=== PATIENT | female | born 1975 | race Caucasian/White ===

== ENCOUNTER 2020-07-08 08:56 | Observation (INO) | payer OTHER ==
[2020-07-05 08:59] LABS: BASOPHILS % (AUTO) 0.7 % (0.0-5.0); EOSINOPHILS % (AUTO) 2.3 % (0.0-8.0); HEMATOCRIT 47.5 % (36-48); LYMPHOCYTES % (AUTO) 37.8 % (21.0-51.0); MEAN CORPUSCULAR HEMOGLOBIN 29.1 pg (27.0-33.0); MEAN CORPUSCULAR HGB CONC 32.2 g/dL (32.0-36.0); MEAN CORPUSCULAR VOLUME 90.5 fL (79-99); MONOCYTES % (AUTO) 6.3 % (3.0-13.0); NEUTROPHILS % (AUTO) 52.2 % (40.0-77.0); PLATELET COUNT (AUTO) 257 K/uL (130-400); RED BLOOD CELL COUNT(AUTO) 5.25 MIL/uL (4.00-5.50); WHITE BLOOD COUNT (AUTO) 6.8 K/uL (4.8-10.8)
[2020-07-05 09:15] LABS: CREATININE 0.8 mg/dL (0.5-1.5); POTASSIUM 4.2 mmol/L (3.5-5.1)
[2020-07-05 09:35] LABS: INR 0.92 (0.85-1.15)
[2020-07-08] VITALS (25 sets, daily range): BP systolic 112–157; BP diastolic 62–94
[~2020-07-08] VITALS: Ht 180.3 cm; Wt 161.0 kg
[~2020-07-08 08:56] MED LIST: ZONI100C19 PO
[2020-07-08] MEDS ORDERED: LACTATED RINGERS 1000ML 1,000 ML IV ONE (09:18)
[2020-07-08] MEDS: CEFAZOLIN SODIUM 1 GM VIAL ONE ×2 (09:57→13:17)
[2020-07-08] MEDS ORDERED: LIDOCAINE PF 2% 5ML ABBOJECT ONE (12:38)
[2020-07-08] MEDS ORDERED: PROPOFOL 10 MG/ML 20ML VIAL IV ONE ×3 (12:39→13:35)
[2020-07-08] MEDS ORDERED: ROCURONIUM 10MG/1ML SYR 10 MG/ML ML ONE (12:39)
[2020-07-08] MEDS ORDERED: FENTANYL CITRATE PF 50 MCG/1 ML 5ML AMP IV ONE ×2 (12:39→13:41)
[2020-07-08] MEDS ORDERED: ONDANSETRON HCL 4 MG/2 ML VIAL ONE ×2 (12:39→14:52)
[2020-07-08] MEDS ORDERED: MIDAZOLAM HCL 1 MG/ML 2ML VIAL ONE (12:40)
[2020-07-08] MEDS ORDERED: PHENYLEPHRINE HCL 10 MG/ML 1ML VIAL IV ONE (13:52)
[2020-07-08] MEDS ORDERED: NEOSTIGMINE 5MG/5ML SYR IV ONE (14:11)
[2020-07-08] MEDS ORDERED: GLYCOPYRROLATE 1 MG/5 ML SYRINGE ONE (14:11)
[2020-07-08] MEDS ORDERED: BUPIVACAINE/PF 0.5% 30ML VIAL ONE (14:20)
[2020-07-08] MEDS: MORPHINE SULFATE 4 MG/1ML SYG IVP PRN (18:44)
[2020-07-08] MEDS: LACTATED RINGERS 1000ML 1,000 ML IV SCH (19:56)
[2020-07-08] MEDS: CEFAZOLIN SODIUM 1 GM VIAL IVP SCH (19:56)
--- NOTE | 2020-07-08 20:00 | NUR ---
ASSESSMENT AND TEACHING PATIENT AWAKE, ALERT, OX3, NO SOB, NO C/O PAIN AT THIS TIME, DRESSING ABDOMEN D/I, ABDOMINAL BINDER INTACT, ENCOURAGE DEEP BREATHING AND REINFORCE IS PREVIOUSLY DONE, WITH MAXIMUM VOLUME INSPIRATION OF 1500, teach patient plan of care, pain management and expected outcome patient verbalizes understanding via teach back
[2020-07-08] MEDS: KETOROLAC TROMETHAMINE 30MG/ML IV PRN (20:39)
[2020-07-09] MEDS: MORPHINE SULFATE 4 MG/1ML SYG IVP PRN (02:01)
[2020-07-09] MEDS: CEFAZOLIN SODIUM 1 GM VIAL IVP SCH (02:01)
[2020-07-09] MEDS: LACTATED RINGERS 1000ML 1,000 ML IV SCH ×2 (02:02→10:00)
[2020-07-09] MEDS: ONDANSETRON HCL 4 MG/2 ML VIAL IVP PRN ×3 (02:07→14:43)
[2020-07-09 04:13] VITALS: BP 133/76
[2020-07-09 05:30] LABS: BASOPHILS % (AUTO) 0.2 % (0.0-5.0); EOSINOPHILS % (AUTO) 0.6 % (0.0-8.0); HEMATOCRIT 42.6 % (36-48); MEAN CORPUSCULAR HEMOGLOBIN 29.3 pg (27.0-33.0); MEAN CORPUSCULAR HGB CONC 32.6 g/dL (32.0-36.0); MEAN CORPUSCULAR VOLUME 89.9 fL (79-99); NEUTROPHILS % (AUTO) 66.7 % (40.0-77.0); PLATELET COUNT (AUTO) 246 K/uL (130-400); RED BLOOD CELL COUNT(AUTO) 4.74 MIL/uL (4.00-5.50); WHITE BLOOD COUNT (AUTO) 8.4 K/uL (4.8-10.8)
[2020-07-09 05:45] LABS: CREATININE 0.8 mg/dL (0.5-1.5); POTASSIUM 3.9 mmol/L (3.5-5.1)
[2020-07-09] MEDS: KETOROLAC TROMETHAMINE 30MG/ML IV PRN ×3 (07:36→21:54)
[2020-07-09 09:09] VITALS: BP 121/66
[2020-07-09 11:49] VITALS: BP 122/65
--- NOTE | 2020-07-09 17:00 | NUR ---
EXPECT DISPO TO HOME WHEN CLEARED BY [facility], SCHEDULED PROCEDURE, NO TRIGGERS TO CM, NO CONCERNS VOICED, DETAILED CM ASSESSMENT DEFERRED Addendum: 07/09/20 at 2133 by AURA SCHMITZ RN CM Amended: Links added.
[2020-07-09 19:40] VITALS: BP 129/67
--- NOTE | 2020-07-09 22:00 | NUR ---
PT DISCHARGED PT DISCHARGED PER DR ARREOLA. PT VERBALIZED AN UNDERSTANDING OF DISCHARGE INSTRUCTIONS. IV REMOVED WITH CATH INTACT. PT TAKEN TO LOBBY VIA FOR DISCHARGE.
[2020-07-09] MEDS ORDERED: AMOX-426 PO (22:13)
[2020-07-09] MEDS ORDERED: TRAM50TA4 PO ×2 (22:13→22:31)
== END 2020-07-09 22:10 | disposition home or self-care (01) ==
LOC: DAH 08:56 → 3AH 08:57 → DAH 08:57 → INTOOBSV 08:57
PROVIDERS: ADMIT Surgery; ATTEND Surgery
DX: K43.2 Incisional hernia without obstruction or gangrene (principal); Z20.828 Contact with and (suspected) exposure to other viral communicable diseases
CPT/HCPCS: 36415 ×3; 49565; 49568; 71045; 80048 ×2; 85025 ×2; 85610; 85730; 86850 ×2; 86900 ×2; 86901 ×2; 93005; 96374; 96375 ×2; 96376 ×2; A4215; A4221; A4222; A4223; A4452; A4649; A4663; A6260; C1781; C9803; G0378 ×17; J0690 ×3; J1885 ×4; J2001; J2250; J2270 ×2; J2370; J2405 ×5; J2704 ×3; J2710; J3010 ×2; J3490 ×2; J7120 ×3; U0003